=== PATIENT | male | born 1985 | race Caucasian/White ===

== ENCOUNTER → 2016-06-09 | Outpatient (CLI) | payer SELFPAY ==
--- NOTE | 2016-06-09 16:28 | EKG ---
[address] [address] Measurements Intervals [place] Rate: 63 P: 67 OK: 159 QRS: 69 QRSD: 89 T: 52 QT: 391 QTc: 398 Interpretive Statements SINUS RHYTHM POSSIBLE RIGHT VENTRICULAR CONDUCTION DELAY [RSR (QR) IN V1/V2] No previous ECG available for comparison Electronically Signed On 06-10-16 12:06:33 MST by Juan Tapia MD [email or web address]
== END ==
LOC: EKG 16:17
PROVIDERS: ATTEND Nurse Practitioner Family
DX: R01.1 Cardiac murmur, unspecified (principal)
CPT/HCPCS: 93005; 93010